=== PATIENT | male | born 1970 | race Caucasian/White ===

== ENCOUNTER 2019-08-25 11:33 | Observation (INO) | payer SELFPAY ==
[2019-08-25 12:30] LABS: #Basophils 0.1 thou/uL (0.0-0.2); #Eosinphils 0.1 thou/uL (0.0-0.7); #Lymphocytes 2.1 thou/uL (1.20-3.40); #Monocytes 0.7 thou/uL (0.11-0.59); #Neutrophils 8.7 thou/uL (1.40-6.50); %Basophils 0.8 % (0.0-1.0); %Eosinophils 0.5 % (0.0-10.0); %Lymphocytes 17.6 % (21.0-51.0); %Monocytes 6.2 % (0.0-10.0); Hemoglobin 15.5 g/dL (14.0-18.0); Mean Corpuscular HGB CONC 33.9 g/dL (32.0-36.0); Mean Corpuscular Hemoglobin 29.5 pg (27.0-31.0); Mean Corpuscular Volume 86.9 fL (78.0-98.0); Mean Platelet Volume 6.2 fL (7.4-10.4); Platelet Count 304 thou/uL (130-400); RBC Distribution Width 14.1 % (11.5-14.5); Red Blood Cell (RBC) Count 5.24 mill/uL (4.70-6.10); White Blood Cell (WBC) Count 11.7 thou/uL (4.8-10.8)
[2019-08-25 13:00] LABS: ALT (SGPT) 46 U/L (8-55); AST (SGOT) 65 U/L (5-34); Albumin 4.1 g/dL (3.5-5.0); Alkaline Phosphatase 72 U/L (40-110); Anion Gap 16 mmol/L (10-20); BUN (Urea Nitrogen) 14 mg/dL (8.9-20.6); Bilirubin, Total 0.4 mg/dL (0.2-1.2); Calc. Creatinine Clearance 0 mL/min (70-130); Calcium 9.1 mg/dL (7.8-10.44); Carbon Dioxide 23 mmol/L (22-29); Chloride 100 mmol/L (98-107); Estimated GFR-MDRD Greater than 90; Glucose 84 mg/dL (70-105); Lipase 36 U/L (8-78); Potassium 4.1 mmol/L (3.5-5.1); Protein, Total 7.1 g/dL (6.0-8.3); Sodium 135 mmol/L (136-145)
[2019-08-25] MEDS ORDERED: Pantoprazole 40 MG VIAL ONE (14:08)
[2019-08-25] MEDS ORDERED: Ondansetron ODT 4 MG TAB ONE (14:58)
[2019-08-25 15:15] LABS: Acetaminophen Less than 6.0 mcg/mL (10.0-30.0); Alcohol 116 mg/dL (Less than 10); Salicylate Less than 8.0 mg/dL (15.0-30.0)
[2019-08-25] MEDS ORDERED: Lorazepam 2 MG/ML VIAL ONE (16:28)
[2019-08-25 16:45] LABS: Bacteria/HPF None Seen HPF (None Seen); Bilirubin Negative (Negative); Blood, Urine Trace (Negative); Clarity Clear (Clear); Glucose, Urine (Dipstick) Normal (Negative); Leukocyte Negative Leu/uL (Negative); Nitrite Negative (Negative); Protein, Urine (Dipstick) Negative (Neg-Trace); RBC/HPF None Seen HPF (0-3); Squamous Epithelial 0-3 HPF (0-3); Urobilinogen Normal mg/dL (Less than 2); WBC/HPF 0-3 HPF (0-3)
[2019-08-25 16:53] LABS: Amphetamine Not Detected (NotDetected); Barbiturates Screen Not Detected (NotDetected); Benzodiazepine Screen Not Detected (NotDetected); Cocaine Metabolite Screen Not Detected (NotDetected); Medtox Control Line Valid? VALID (VALID); Medtox Reader # READER 4; Methadone Not Detected (NotDetected); Methamphetamine Not Detected (NotDetected); Opiate Screen Not Detected (NotDetected); Oxycodone Screen Not Detected (NotDetected); Phencyclidine (PCP) Not Detected (NotDetected); THC/Cannabinoid Screen Not Detected (NotDetected); Tricyclic Screen Not Detected (NotDetected)
[2019-08-25] MEDS ORDERED: Ondansetron ODT 4 MG TAB PO PRN (18:04)
[2019-08-25] MEDS ORDERED: Ondansetron PF 4 MG/2 ML Vial IVP PRN (18:19)
--- NOTE | 2019-08-25 18:52 | PDOC.HHP ---
Hospitalist HPI - History of Present Illness N/V and shaking History of Present Illness: 49/M with PMH alcohol abuse and drug abuse and HTN who presents for increasing nausea and vomiting and shaking over past 4 days. Last drink this morning at 1030. Reports difficulty drinking the first 2-3 beers each morning, secondary to increasing abdominal pain, nausea, vomiting. Describes abdominal pain as muscular pain, "its not on the inside", thinks it from vomiting and dry heaving. Reports dark black specs in vomit intermittently, and blood on toilet tissue after wiping, denies any blood in his stools, has history of hemorrhoids , reports increased shaking and chills, denies any known fever. Reports insomnia , stating I only sleep for approximately 4 hours per night. At this time the patient denies any headaches, hallucinations, chest pain, sob or dysuria. He states that his symptoms are much improved in the ER. Voluntarily admitted to the [facility],01/2019 and self-discharged early in . Lives in his car, in the [facility] [place] area. Reports social issues including family problems likely leading to relapse. Has been "binging", drinking 2 pints of vodka per day, until over the past 4 days, he decided to wean off the vodka. To accomplish this, he checked into a motel and was drinking beer only, approximately 12-15 beers daily. ED Course: Vital Signs: BP: 158/89, Pulse: 99, Resp: 20, Temp: 98.9 (Oral), Pain: 0, O2 sat : 95 on (on Room Air) ETOH 116 Na+ 135, K+ 4.1, CL 100, CO2 23, BUN 14, Creatinine 0.78, Glucose 84, GAP 16 Lipase 36 AST 65, ALT 46, Alk Phos. 72 TSH 1.74 WBC 11.7, Hgb 15.5, Hct 45.5, Plat 304 UDS unremarkable Given Ativan 1 mg IVP Protonix 40 mg IVP Zofran 4mg ODT Hospitalist ROS - Review of Systems Constitutional: reports: chills Gastrointestinal: reports: nausea, vomiting, abdominal pain, diarrhea Hospitalist History - Past Medical History Cardiac: reports: HTN Gastrointestinal: reports: Hemorrhoids Psych: reports: Anxiety, Addictions (alcohol, marijuana and methamphetamines), Depression, Other (ADHD) Dermatology: reports: Eczema (as a child) - Past Surgical History Past Surgical History: reports: Other Other Surgical History: RLE abscess I&D - Family History Family History: reports: cancer, cardiac disorder, hypertension - Social History Alcohol: reports: Heavy Drugs: reports: marijuana, methamphetamine Living Situation: Alone (lives in car), Homeless Occupation: unemployed Activity level: independent ambulation - Exam General Appearance: NAD Eye: PERRL, anicteric sclera ENT: normocephalic atraumatic Neck: supple, no thyromegaly, no lymphadenopathy Heart: RRR, no murmur, no gallops, no rubs Respiratory: CTAB, no wheezes, no rales, no ronchi Gastrointestinal: soft, non-tender, normal bowel sounds, no guarding, no rigidity, distended Extremities: no cyanosis, no clubbing Skin: no lesions, no rashes Neurological: cranial nerve grossly intact, no focal deficits Psychiatric: normal affect, A&O x 3 Hospitalist Results - Labs Result Diagrams: 08/25/19 12:18 08/25/19 12:18 Lab results: WBC 11.7 thou/uL (4.8-10.8) H 08/25/19 12:18 Hgb 15.5 g/dL (14.0-18.0) 08/25/19 12:18 Hct 45.5 % (42.0-52.0) 08/25/19 12:18 MCV 86.9 fL (78.0-98.0) 08/25/19 12:18 Plt Count 304 thou/uL (130-400) 08/25/19 12:18 Neutrophils % 75.0 % (42.0-75.0) 08/25/19 12:18 Sodium 135 mmol/L (136-145) L 08/25/19 12:18 Potassium 4.1 mmol/L (3.5-5.1) 08/25/19 12:18 Chloride 100 mmol/L (98-107) 08/25/19 12:18 Carbon Dioxide 23 mmol/L (22-29) 08/25/19 12:18 BUN 14 mg/dL (8.9-20.6) 08/25/19 12:18 Creatinine 0.78 mg/dL (0.7-1.3) 08/25/19 12:18 Glucose 84 mg/dL (70-105) 08/25/19 12:18 Calcium 9.1 mg/dL (7.8-10.44) 08/25/19 12:18 Total Bilirubin 0.4 mg/dL (0.2-1.2) 08/25/19 12:18 AST 65 U/L (5-34) H 08/25/19 12:18 ALT 46 U/L (8-55) 08/25/19 12:18 Alkaline Phosphatase 72 U/L (40-110) 08/25/19 12:18 Serum Total Protein 7.1 g/dL (6.0-8.3) 08/25/19 12:18 Albumin 4.1 g/dL (3.5-5.0) 08/25/19 12:18 Lipase 36 U/L (8-78) 08/25/19 12:18 Urine Ketones Trace mg/dL (Negative) A 08/25/19 16:00 Urine Blood Trace (Negative) A 08/25/19 16:00 Urine Nitrite Negative (Negative) 08/25/19 16:00 Ur Leukocyte Esterase Negative Anotnella/uL (Negative) 08/25/19 16:00 Urine RBC None Seen HPF (0-3) 08/25/19 16:00 Urine WBC 0-3 HPF (0-3) 08/25/19 16:00 Ur Squamous Epith Cells 0-3 HPF (0-3) 08/25/19 16:00 Urine Bacteria None Seen HPF (None Seen) 08/25/19 16:00 Hospitalist H&P A/P - Problem (1) Alcohol withdrawal syndrome Code(s): F10.239 - ALCOHOL DEPENDENCE WITH WITHDRAWAL, UNSPECIFIED Status: Acute (2) Nausea & vomiting Code(s): R11.2 - NAUSEA WITH VOMITING, UNSPECIFIED Status: Acute (3) Hypertension Code(s): I10 - ESSENTIAL (PRIMARY) HYPERTENSION Status: Chronic (4) Anxiety and depression Code(s): F41.9 - ANXIETY DISORDER, UNSPECIFIED; F32.9 - MAJOR DEPRESSIVE DISORDER, SINGLE EPISODE, UNSPECIFIED Status: Acute - Plan Plan: Patient reports improvement of symptoms in ER, Reports he has contacted his previous alcohol treatment center in [place] and they will except him back into their program. He states that he wants to return to the program. library monitor Obtain Baseline EKG. ASE protocol initiated Banana bag daily Check Mg+ and Ph FOBT pending results. Consult MR when medically stable. Restart home medications when reconciled. GI prophylaxis SCDs Consult walking program. Recheck labs in AM Full Code. Decision maker, ex , Kelsey Camarena, [facility] ([place]) contact, Severino [phone].
[2019-08-25] MEDS ORDERED: Diazepam 5 MG TAB PO PRN (19:14)
[2019-08-25] MEDS ORDERED: Diazepam 5 MG TAB PO SCH (19:30)
[2019-08-25] MEDS ORDERED: Thiamine HCl 200 MG/2 ML VIAL IM SCH (20:00)
[2019-08-25 20:20] LABS: Phosphorus 2.7 mg/dL (2.3-4.7)
[2019-08-25] MEDS ORDERED: Famotidine/PF 20 mg/2ml Vial SLOW IVP SCH (21:00)
[2019-08-25] MEDS: Multivitamins, Adult 10 ML, Folic Acid 1 MG, Thiamine HCl 100 MG in Dextrose 5 %-0.45 %... IV SCH (21:16)
[2019-08-25 21:48] VITALS: BMI 34.0
[2019-08-25] MEDS ORDERED: Metoprolol Tartrate 25 MG TAB PO SCH (22:00)
[2019-08-25] MEDS: Sodium Chloride 0.9% 1,000 ML IV SCH (22:16)
[2019-08-26] MEDS ORDERED: Lorazepam 1 MG TAB PO SCH (00:15)
[2019-08-26] MEDS ORDERED: Diazepam 5 MG TAB PO PRN (04:00)
[2019-08-26 04:56] LABS: #Basophils 0.1 thou/uL (0.0-0.2); #Eosinphils 0.2 thou/uL (0.0-0.7); #Lymphocytes 2.3 thou/uL (1.20-3.40); #Monocytes 0.9 thou/uL (0.11-0.59); #Neutrophils 6.5 thou/uL (1.40-6.50); %Basophils 0.6 % (0.0-1.0); %Eosinophils 2.1 % (0.0-10.0); %Lymphocytes 23.6 % (21.0-51.0); %Monocytes 8.6 % (0.0-10.0); %Neutrophils 65.1 % (42.0-75.0); Hemoglobin 13.5 g/dL (14.0-18.0); Mean Corpuscular HGB CONC 33.2 g/dL (32.0-36.0); Mean Corpuscular Hemoglobin 29.3 pg (27.0-31.0); Mean Corpuscular Volume 88.2 fL (78.0-98.0); Mean Platelet Volume 6.6 fL (7.4-10.4); Platelet Count 258 thou/uL (130-400); RBC Distribution Width 14.1 % (11.5-14.5); Red Blood Cell (RBC) Count 4.61 mill/uL (4.70-6.10); White Blood Cell (WBC) Count 9.9 thou/uL (4.8-10.8)
[2019-08-26 05:22] LABS: Anion Gap 14 mmol/L (10-20); BUN (Urea Nitrogen) 10 mg/dL (8.9-20.6); Calc. Creatinine Clearance 166 mL/min (70-130); Carbon Dioxide 25 mmol/L (22-29); Chloride 105 mmol/L (98-107); Estimated GFR-MDRD Greater than 90; Glucose 100 mg/dL (70-105); Potassium 3.7 mmol/L (3.5-5.1); Sodium 140 mmol/L (136-145)
[2019-08-26] MEDS ORDERED: FLU VACC QS2019-20(6MOS UP)/PF 60 MCG/0.5 ML SYRINGE IM ONE (09:00)
[2019-08-26] MEDS: Magnesium Oxide 400 MG TAB PO SCH (10:10)
[2019-08-26] MEDS: Thiamine 100 MG TAB PO SCH (10:11)
[2019-08-26] MEDS: Folic Acid 1 MG TAB PO SCH (10:11)
[2019-08-26] MEDS: Metoprolol Tartrate 25 MG TAB PO SCH ×2 (10:11→21:21)
[2019-08-26] MEDS: Multivitamin W/ Minerals 1 TAB PO SCH (10:11)
[2019-08-26] MEDS: Pantoprazole 40 MG VIAL IVP SCH ×2 (10:12→21:21)
[2019-08-26] MEDS: Lorazepam 1 MG TAB PO PRN ×2 (10:23→23:49)
[2019-08-26] MEDS: Sodium Chloride 0.9% 1,000 ML IV SCH (11:40)
--- NOTE | 2019-08-26 11:49 | PDOC.HOSPP ---
- Subjective Encounter Date: 08/26/19 Encounter Time: 07:40 Subjective: Pt seen for followup re: GI bleed. States he feels slightly better. No fevers. - Objective Vital Signs & Weight: Vital Signs (12 hours) Temp Pulse Resp BP BP BP Pulse Ox 08/26/19 11:36 98.0 F 83 20 141/96 H 96 08/26/19 10:18 169/94 H 08/26/19 08:00 98.6 F 99 16 169/94 H 169/94 H 96 08/26/19 04:00 97.7 F 89 20 137/78 93 L 08/26/19 00:00 99.1 F 99 18 179/106 H 94 L Weight Weight 230 lb I&O: 08/25/19 08/26/19 08/27/19 06:59 06:59 06:59 Intake Total 1400 Balance 1400 Result Diagrams: 08/26/19 04:31 08/26/19 04:31 Additional Labs: labs and MARs reviewed by ga Hospitalist ROS - Review of Systems Constitutional: denies: fever, chills, sweats, weakness, malaise Respiratory: denies: cough, shortness of breath, SOB with excertion, pleuritic pain, wheezing Cardiovascular: denies: chest pain, palpitations, orthopnea, paroxysmal noc. dyspnea, edema, light headedness Gastrointestinal: reports: hematochezia. denies: nausea, vomiting, abdominal pain, diarrhea, constipation, melena Skin: denies: rash, lesions, annabel, bruising - Medication Medications: Active Medications Generic Name Dose Route Start Last Admin Trade Name Cortney PRN Reason Stop Dose Admin Folic Acid 1 mg 08/26/19 09:00 08/26/19 10:11 Folvite PO 1 mg DAILY LAINEY Administration Multivitamins 10 ml/ Folic 1,011.2 mls @ 70 mls/hr 08/25/19 21:00 08/25/19 21 :16 Acid 1 mg/ Thiamine HCl 100 mg IV 08/28/19 11:27 1,011.2 mls / Dextrose/Sodium Chloride Q24HR LAINEY Administration Sodium Chloride 1,000 mls @ 70 mls/hr 08/25/19 19:15 08/26/19 11:40 Normal Saline 0.9% IV 1,000 mls .[id number] LAINEY Administration Iron/Minerals/Multivitamins 1 tab 08/26/19 09:00 08/26/19 10:11 Theragran M PO 1 tab DAILY LAINEY Administration Lorazepam 2 mg 08/26/19 00:03 08/26/19 10:23 Ativan PO 2 mg Q4H PRN Administration Anxiety/Agitation Magnesium Oxide 400 mg 08/26/19 09:00 08/26/19 10:10 Magnesium Oxide PO 400 mg DAILY LAINEY Administration Metoprolol Tartrate 25 mg 08/26/19 09:00 08/26/19 10:11 Lopressor PO 25 mg BID LAINEY Administration Pantoprazole Sodium 40 mg 08/26/19 09:00 08/26/19 10:12 Protonix IVP 40 mg Q12HR LAINEY Administration Thiamine HCl 100 mg 08/26/19 09:00 08/26/19 10:11 Thiamine PO 100 mg DAILY LAINEY Administration - Exam General - other findings: obese Eye: anicteric sclera ENT: normocephalic atraumatic, moist mucosa Neck: supple, symmetric, no JVD, no thyromegaly Heart: RRR, no rubs, normal peripheral pulses Respiratory: CTAB, no wheezes, no rales, no ronchi Gastrointestinal: soft, non-tender, normal bowel sounds, distended Extremities: no edema Skin: no rashes Neurological - other findings: tremor Musculoskeletal: no muscle wasting Psychiatric: normal affect, normal behavior, A&O x 3 Hosp A/P (1) GI bleed Code(s): K92.2 - GASTROINTESTINAL HEMORRHAGE, UNSPECIFIED Status: Acute (2) Alcohol abuse Code(s): F10.10 - ALCOHOL ABUSE, UNCOMPLICATED Status: Chronic (3) Hypertension Code(s): I10 - ESSENTIAL (PRIMARY) HYPERTENSION Status: Chronic (4) Obesity (BMI 30.0-34.9) Code(s): E66.9 - OBESITY, UNSPECIFIED Status: Chronic - Plan Hemoglobin decreased, GI service consulted. Continue banana bag. Continue ASE protocol. hyponatremia resolved. Start amlodipine.
[2019-08-26] MEDS ORDERED: Amlodipine 5 MG TAB PO SCH (12:00)
--- NOTE | 2019-08-26 15:21 | CON ---
DATE OF CONSULTATION: 08/26/2019 REQUESTING PHYSICIANS: Tino Hamilton MD REASON FOR CONSULTATION: Rectal bleeding. HISTORY OF PRESENT ILLNESS: Landon López is a 49-year-old man with a history significant for ongoing quite heavy alcohol abuse as well as hypertension. He has a prior drug history of marijuana and methamphetamine abuse as well. He was previously in rehab last summer for substance abuse issues. He reports that he has been binge drinking basically every day at least two pints of vodka. Over the past several days, he was trying to wean off the vodka, drinking beer instead, about 12 to 15 beers daily. He started having a lot of nausea and vomiting, particularly in the mornings with repeated emesis episodes and dry heaves. He would have some generalized abdominal pain as well. He actually states he was always able to keep food and liquids down; however, he just had to do a lot of vomiting in the morning prior to eating. He denies any hematemesis. He denies any melena or hematochezia, but he does say that whenever he has a lot of beer, he has loose stools and with the loose stools, he will have a little bit of anal discomfort and some bright red blood usually just on the toilet paper. This bright red blood has been intermittent over the past 6 months or so. He has attributed this to hemorrhoids and has been using creams at home with some benefit. He has never undergone colonoscopy. He has no known family history of GI malignancy, though his father did have prostate cancer. REVIEW OF SYSTEMS: Full review of systems including constitutional, head, eyes, ears, nose, throat, GI, , cardiovascular, respiratory, musculoskeletal, and neurologic systems are negative except as noted in the HPI. PAST MEDICAL HISTORY: Hypertension, alcohol abuse, prior history of drug abuse with marijuana and methamphetamines, depression, and eczema. PAST SURGICAL HISTORY: He had a right lower extremity abscess I and D. FAMILY HISTORY: His father had colon cancer. No gastrointestinal malignancy. SOCIAL HISTORY: Ongoing heavy alcohol abuse. He also has a prior recent history of marijuana and methamphetamine abuse. He lives alone in his car. He is unemployed. OUTPATIENT MEDICATIONS: 1. Metoprolol. 2. Librium. 3. Zantac p.r.n. 4. Thiamine. 5. Multivitamin with minerals. 6. Folic acid. 7. Losartan. INPATIENT MEDICATIONS: 1. Norvasc. 2. Valium. 3. Folic acid. 4. Theragran. 5. Banana bag. 6. Ativan. 7. Metoprolol. 8. Zofran p.r.n. 9. Protonix. 10. Thiamine. ALLERGIES: NO KNOWN DRUG ALLERGIES. PHYSICAL EXAMINATION: VITAL SIGNS: Temperature 98.0, pulse 83, blood pressure 169/94, and 96% oxygen saturation on room air. GENERAL: A 49-year-old man, sitting up in bed comfortably, mildly anxious, but in no acute distress. MENTAL: He is hyperalert, fully oriented, pleasant, and conversational. SKIN: No jaundice. No rashes were palpable. HEENT: Eyes, no scleral icterus. Extraocular movements intact. ENT, mucous membranes moist. No oral lesions. LYMPH: No submandibular or supraclavicular lymphadenopathy. THYROID: Nontender to palpation. HEART: Regular rate and rhythm. LUNGS: Clear to auscultation bilaterally. ABDOMEN: Nondistended. Bowel sounds are present. Soft and nontender to palpation throughout. EXTREMITIES: No peripheral edema. VESSELS: Radial pulses 2+ bilaterally. NEURO: Cranial nerves 2 through 12 intact bilaterally. No focal deficits. RECTAL: The patient has some mild excoriation of the perianal skin. No external hemorrhoids or fissure visualized. On digital exam, there is no significant discomfort. I do perceive some internal hemorrhoidal cushions. I cannot palpate any mass. There is no blood on withdrawal of the glove. LABORATORY STUDIES: Admission hemoglobin was 15.5, down to 13.5 overnight with IV hydration. WBC 9.9 and platelets 258. Sodium 140, potassium 3.7, BUN 10, creatinine 0.81, calcium 8.0, total bilirubin 0.4, alkaline phosphatase 72, AST 65, ALT 46, and lipase 36. TSH 1.74. Urinalysis negative. Plasma alcohol level was elevated to 116. Urine drug screen was negative. ASSESSMENT AND PLAN: 1. Rectal bleeding, intermittent over the past 6 months. 2. Probable internal hemorrhoids. 3. Alcohol abuse, with withdrawal. The patient's pattern of intermittent bleeding over the past several months seems most consistent with rectal outlet source, likely secondary to internal hemorrhoids. At his age of 49, further workup would be warranted and I did recommend we proceed with colonoscopy for further investigation to rule out more proximal lesion. There is nothing particularly urgent about this, but I did offer to get it done during his hospital stay here. The patient politely declines any endoscopic examination. He says he is really not ready for this or too concerned at this point. He would like to be able to get through his withdrawal in any rehab program prior to pursuing this any further. I think this is reasonable, but if there is any worsening anemia, worsening of bleeding, or development of any other abdominal symptoms in the meantime, colonoscopy is certainly the next step. The patient understands all the implications. GI will sign off. We will try to get him back in clinic in the next 1 to 2 months for further discussion. Please call back anytime with questions or concerns. Job ID: [id number]
[2019-08-26] MEDS: Multivitamins, Adult 10 ML, Folic Acid 1 MG, Thiamine HCl 100 MG in Dextrose 5 %-0.45 %... IV SCH (21:33)
[2019-08-27] MEDS: Sodium Chloride 0.9% 1,000 ML IV SCH (00:13)
[2019-08-27] MEDS: Metoprolol Tartrate 25 MG TAB PO SCH (08:52)
[2019-08-27] MEDS: Thiamine 100 MG TAB PO SCH (08:52)
[2019-08-27] MEDS: Folic Acid 1 MG TAB PO SCH (08:53)
[2019-08-27] MEDS: Multivitamin W/ Minerals 1 TAB PO SCH (08:53)
[2019-08-27] MEDS: Pantoprazole 40 MG VIAL IVP SCH (08:53)
[2019-08-27] MEDS: Magnesium Oxide 400 MG TAB PO SCH (08:55)
[2019-08-27] MEDS ORDERED: Amlodipine 5 MG TAB PO SCH (09:00)
[2019-08-27 09:54] LABS: #Basophils 0.1 thou/uL (0.0-0.2); #Eosinphils 0.3 thou/uL (0.0-0.7); #Lymphocytes 1.4 thou/uL (1.20-3.40); #Monocytes 0.7 thou/uL (0.11-0.59); #Neutrophils 5.4 thou/uL (1.40-6.50); %Eosinophils 3.2 % (0.0-10.0); %Lymphocytes 18.1 % (21.0-51.0); %Monocytes 8.9 % (0.0-10.0); %Neutrophils 68.8 % (42.0-75.0); Hemoglobin 13.5 g/dL (14.0-18.0); Mean Corpuscular HGB CONC 33.1 g/dL (32.0-36.0); Mean Corpuscular Hemoglobin 29.5 pg (27.0-31.0); Mean Corpuscular Volume 89.3 fL (78.0-98.0); Mean Platelet Volume 6.2 fL (7.4-10.4); Platelet Count 243 thou/uL (130-400); RBC Distribution Width 14.3 % (11.5-14.5); Red Blood Cell (RBC) Count 4.56 mill/uL (4.70-6.10); White Blood Cell (WBC) Count 7.9 thou/uL (4.8-10.8)
[2019-08-27] MEDS ORDERED: Nicotine 21 MG PATCH TD SCH (10:00)
[2019-08-27 10:06] LABS: Anion Gap 10 mmol/L (10-20); BUN (Urea Nitrogen) 6 mg/dL (8.9-20.6); Calc. Creatinine Clearance 171 mL/min (70-130); Calcium 7.9 mg/dL (7.8-10.44); Carbon Dioxide 25 mmol/L (22-29); Chloride 109 mmol/L (98-107); Estimated GFR-MDRD Greater than 90; Glucose 103 mg/dL (70-105); Potassium 3.8 mmol/L (3.5-5.1); Sodium 140 mmol/L (136-145)
[2019-08-27 16:34] VITALS: BP 145/85; TEMP 99
--- NOTE | 2019-08-28 02:21 | DIS ---
DATE OF ADMISSION: 08/25/2019 DATE OF DISCHARGE: 08/27/2019 PRIMARY CARE PROVIDER: Dr. Iron Jimenez. DISCHARGE DIAGNOSES: 1. Alcohol abuse. 2. Gastrointestinal bleed. 3. Hyponatremia. CONDITION OF PATIENT ON THE DAY OF DISCHARGE: Stable. I assessed Mr. López on the day of discharge. He denies any chest pain or shortness of breath. Vital signs are stable. S1 and S2 are heard, regular. Lungs are clear to auscultation bilaterally. CONSULTATIONS DURING THIS HOSPITALIZATION: Gastroenterology, Dr. Tino Newman. POST-ACUTE CARE FOLLOWUP: With primary care provider in 3 days. DIET: Regular. ACTIVITY: Ad lois. DISCHARGE MEDICATIONS: 1. Folic acid 1 mg daily. 2. Cozaar 50 mg daily. 3. Lopressor 25 mg 2 times a day. 4. Theragran 1 tablet daily. 5. Thiamine 100 mg daily. HOSPITAL COURSE: Mr. López is a pleasant 49-year-old gentleman, who was admitted to [facility] on August 25, 2019 for alcohol withdrawal concern. He also reported specks of blood in his stool. He was managed on ASE protocol. He was seen by Gastroenterology Service. Endoscopic studies were offered, but the patient declined endoscopy. In terms of alcohol withdrawal, he continued to do well. He had expressed suicidal ideation at the time of admission. [facility] was therefore consulted on the day of discharge, and they recommended discharging him home. He will follow up with his alcohol rehab center for further management of alcohol abuse. Many thanks for allowing me to participate in your patient's care. Please feel free to contact me with any questions or concerns. LABORATORY DATA: On the day of discharge, he has white count of 7900, hemoglobin 13.5, platelet count 243,000, sodium 140, potassium 3.8, and creatinine 0.79. DISCHARGE DESTINATION: Home. Job ID: [id number]
--- NOTE | 2019-08-31 10:12 | EKG ---
Test Reason : BASE EKG Blood Pressure : / mmHG Vent. Rate : 111 BPM Atrial Rate : 111 BPM P-R Int : 130 ms QRS Dur : 096 ms QT Int : 338 ms P-R-T Axes : 051 052 062 degrees QTc Int : 459 ms Sinus tachycardia Septal infarct , age undetermined Abnormal ECG No previous ECGs available Confirmed by ALEXANDER BEAN (2) on 08/31/2019 10:12:10 AM Referred By: EMMANUELLE Confirmed By:ALEXANDER BEAN
== END 2019-08-27 18:05 | disposition home or self-care (01) ==
LOC: ERS 11:33 → INTOOBSV 20:35 → 2NO 20:35
PROVIDERS: ADMIT Internal Medicine; ATTEND Internal Medicine
DX: F10.239 Alcohol dependence with withdrawal, unspecified (principal); F12.10 Cannabis abuse, uncomplicated; F15.10 Other stimulant abuse, uncomplicated; K92.2 Gastrointestinal hemorrhage, unspecified; E87.1 Hypo-osmolality and hyponatremia; I10 Essential (primary) hypertension; F41.9 Anxiety disorder, unspecified; F32.9 Major depressive disorder, single episode, unspecified; F90.9 Attention-deficit hyperactivity disorder, unspecified type; R45.851 Suicidal ideations
CPT/HCPCS: 36415; 80048; 80053; 80306; 80307; 81003; 81015; 82274; 83690; 83735; 84100; 84443; 85025; 86850; 86900; 86901; 93005; 93010; 96361; 96372; 96374; 96375; 96376; C9113; G0378; J2060; J3411; J3475; J3490; J7042; Q0162; S0028

== ENCOUNTER 2023-08-05 09:30 | Inpatient (IN) | payer SELFPAY ==
[2023-08-05 10:04] LABS: #Monocytes 0.6 thou/uL (0.11-0.59); #Neutrophils 5.2 thou/uL (1.40-6.50); %Basophils 0.6 % (0.0-1.0); %Eosinophils 0.6 % (0.0-10.0); %Lymphocytes 12.8 % (21.0-51.0); %Monocytes 8.1 % (0.0-10.0); %Neutrophils 75.9 % (42.0-75.0); Hematocrit 41.3 % (42.0-52.0); Hemoglobin 14.7 g/dL (14.0-18.0); Mean Corpuscular HGB CONC 35.6 g/dL (32.0-36.0); Mean Corpuscular Hemoglobin 31.2 pg (27.0-31.0); Mean Corpuscular Volume 87.7 fl (78.0-98.0); Mean Platelet Volume 9.3 fL (7.4-10.4); Platelet Count 188 10x3/uL (130-400); RBC Distribution Width 17.7 % (11.5-14.5); Red Blood Cell (RBC) Count 4.71 mill/uL (4.70-6.10); White Blood Cell (WBC) Count 6.9 10x3/uL (4.8-10.8)
[2023-08-05 10:26] LABS: ALT (SGPT) 266 U/L (8-55); AST (SGOT) 379 U/L (5-34); Albumin 3.5 g/dL (3.5-5.0); Alkaline Phosphatase 163 U/L (40-110); Anion Gap 21 mmol/L (10-20); BUN (Urea Nitrogen) 4 mg/dL (8.4-25.7); Calc. Creatinine Clearance 0 mL/min (70-130); Calcium 9.3 mg/dL (7.8-10.44); Carbon Dioxide 24 mmol/L (22-29); Chloride 89 mmol/L (98-107); Estimated GFR 97; Globulin 2.9 g/dL (2.4-3.5); Glucose 154 mg/dL (70-105); Potassium 3.1 mmol/L (3.5-5.1); Protein, Total 6.4 g/dL (6.0-8.3); Sodium 131 mmol/L (136-145)
[2023-08-05] MEDS ORDERED: Thiamine HCl 200 MG/2 ML VIAL ONE (10:26)
[2023-08-05] MEDS ORDERED: Diazepam 10 MG/2 ML SYRINGE ONE ×3 (10:26→13:18)
[2023-08-05 10:27] LABS: Acetaminophen Less than 10 mcg/mL (10.0-30.0); Alcohol Less than 10.0 mg/dL (Less than 10); Lipase 96 U/L (8-78); Magnesium 1.3 mg/dL (1.6-2.6); Salicylate Less than 8.0 mg/dL (15.0-30.0)
[2023-08-05] MEDS ORDERED: Potassium Chloride 20 MEQ TAB ONE ×2 (11:46→12:03)
[2023-08-05] MEDS ORDERED: Magnesium 2 GM/50 ML BAG (IN WATER) ONE (11:47)
[2023-08-05] MEDS ORDERED: Lorazepam 2 MG/ML VIAL IM PRN (11:51)
[2023-08-05] MEDS ORDERED: Ondansetron PF 4 MG/2 ML Vial IVP PRN (11:51)
[2023-08-05] MEDS ORDERED: Ondansetron ODT 4 MG TAB PO PRN (11:51)
[2023-08-05] MEDS ORDERED: Lorazepam 1 MG TAB PO PRN (11:51)
[2023-08-05] MEDS ORDERED: Acetaminophen 325 MG TAB PO PRN (11:51)
[2023-08-05] MEDS ORDERED: Electrolyte Replacement Protocol 1 EACH FS SCH (12:00)
[2023-08-05] MEDS ORDERED: Enoxaparin 40 MG (0.4 mL) SYRINGE SC SCH (12:00)
[2023-08-05] MEDS: Lorazepam 1 MG TAB PO SCH ×3 (12:34→23:51)
[2023-08-05 15:32] LABS: Syphilis Antibody Nonreactive (Nonreactive); Syphilis Antibody Index 0.07 S/CO (<1.00 Non-Reactive)
[2023-08-05 16:32] VITALS: BMI 38.4
[2023-08-05] MEDS: Thiamine HCl 200 MG/2 ML VIAL SLOW IVP SCH (16:32)
[2023-08-05 16:59] LABS: Amphetamine Not Detected (NotDetected); Barbiturates Screen Not Detected (NotDetected); Benzodiazepine Screen Not Detected (NotDetected); Cocaine Metabolite Screen Not Detected (NotDetected); Methadone Not Detected (NotDetected); Methamphetamine Not Detected (NotDetected); Opiate Screen Not Detected (NotDetected); Oxycodone Screen Not Detected (NotDetected); Phencyclidine (PCP) Not Detected (NotDetected); THC/Cannabinoid Screen Detected (NotDetected); Tricyclic Screen Not Detected (NotDetected)
[2023-08-05] MEDS ORDERED: Lorazepam 1 MG TAB ONE ×2 (17:37→20:01)
[2023-08-05] MEDS: Sodium Chloride 0.9% 1,000 ML IV SCH (17:40)
[2023-08-05] MEDS ORDERED: Folic Acid 1 MG TAB ONE (20:01)
[2023-08-05] MEDS ORDERED: Metoprolol Tartrate 25 MG TAB ONE (20:01)
[2023-08-05] MEDS ORDERED: Multivit, Therapeutic 1 TAB ONE (20:01)
[2023-08-05] MEDS ORDERED: Famotidine 20 MG TAB ONE (20:02)
[2023-08-05] MEDS: Famotidine 20 MG TAB PO SCH (20:23)
[2023-08-05] MEDS: Folic Acid 1 MG TAB PO SCH (20:24)
[2023-08-05] MEDS: Metoprolol Tartrate 25 MG TAB PO SCH (20:24)
[2023-08-05] MEDS: Multivit, Therapeutic 1 TAB PO SCH (20:24)
[2023-08-05 22:16] LABS: Magnesium 1.6 mg/dL (1.6-2.6); Potassium 3.1 mmol/L (3.5-5.1)
[2023-08-06] MEDS: Sodium Chloride 0.9% 1,000 ML IV SCH ×2 (03:00→09:00)
[2023-08-06 04:27] LABS: #Basophils 0.1 thou/uL (0.0-0.2); #Eosinphils 0.2 thou/uL (0.0-0.7); #Monocytes 0.6 thou/uL (0.11-0.59); #Neutrophils 3.9 thou/uL (1.40-6.50); %Eosinophils 2.5 % (0.0-10.0); %Lymphocytes 20.6 % (21.0-51.0); %Monocytes 9.2 % (0.0-10.0); %Neutrophils 64.5 % (42.0-75.0); Hematocrit 36.6 % (42.0-52.0); Hemoglobin 12.7 g/dL (14.0-18.0); Mean Corpuscular HGB CONC 34.7 g/dL (32.0-36.0); Mean Corpuscular Hemoglobin 30.9 pg (27.0-31.0); Mean Corpuscular Volume 89.1 fl (78.0-98.0); Mean Platelet Volume 9.3 fL (7.4-10.4); Platelet Count 170 10x3/uL (130-400); RBC Distribution Width 18.1 % (11.5-14.5); Red Blood Cell (RBC) Count 4.11 mill/uL (4.70-6.10)
[2023-08-06 05:02] LABS: ALT (SGPT) 197 U/L (8-55); AST (SGOT) 208 U/L (5-34); Albumin 2.9 g/dL (3.5-5.0); Alkaline Phosphatase 127 U/L (40-110); Anion Gap 16 mmol/L (10-20); BUN (Urea Nitrogen) Less than 4 mg/dL (8.4-25.7); Bilirubin, Total 1.8 mg/dL (0.2-1.2); Calc. Creatinine Clearance 178 mL/min (70-130); Carbon Dioxide 24 mmol/L (22-29); Chloride 97 mmol/L (98-107); Estimated GFR 106; Globulin 2.3 g/dL (2.4-3.5); Glucose 124 mg/dL (70-105); Protein, Total 5.2 g/dL (6.0-8.3); Sodium 134 mmol/L (136-145)
[2023-08-06 05:11] LABS: Potassium 2.6 mmol/L (3.5-5.1)
[2023-08-06] MEDS: Benzocaine/Menthol 1 LOZ LOZ PO PRN (05:28)
[2023-08-06] MEDS: Potassium Chloride 20 MEQ TAB PO SCH ×2 (05:29→10:08)
[2023-08-06] MEDS: Nicotine 21 MG PATCH TOP PRN (05:29)
[2023-08-06] MEDS: Lorazepam 1 MG TAB PO SCH ×4 (05:29→23:02)
[2023-08-06 06:04] LABS: Amphetamine Not Detected (NotDetected); Barbiturates Screen Not Detected (NotDetected); Benzodiazepine Screen Detected (NotDetected); Cocaine Metabolite Screen Not Detected (NotDetected); Methadone Not Detected (NotDetected); Methamphetamine Not Detected (NotDetected); Opiate Screen Not Detected (NotDetected); Oxycodone Screen Not Detected (NotDetected); Phencyclidine (PCP) Not Detected (NotDetected); THC/Cannabinoid Screen Detected (NotDetected); Tricyclic Screen Not Detected (NotDetected)
[2023-08-06] MEDS ORDERED: Magnesium 2 GM/50 ML(in water) 2 GM in Premix 1 BAG IVPB SCH (08:00)
[2023-08-06] MEDS: Metoprolol Tartrate 25 MG TAB PO SCH ×2 (10:07→21:29)
[2023-08-06] MEDS: Enoxaparin 40 MG (0.4 mL) SYRINGE SC SCH (10:07)
[2023-08-06] MEDS: Losartan 25 MG TAB PO SCH (10:07)
[2023-08-06] MEDS: Famotidine 20 MG TAB PO SCH ×2 (10:08→21:29)
[2023-08-06] MEDS: Thiamine HCl 200 MG/2 ML VIAL SLOW IVP SCH (11:38)
[2023-08-06] MEDS ORDERED: Lorazepam 1 MG TAB PO PRN (11:51)
[2023-08-06] MEDS: Multivit, Therapeutic 1 TAB PO SCH (21:29)
[2023-08-06] MEDS: Folic Acid 1 MG TAB PO SCH (21:29)
[2023-08-07] MEDS: Lorazepam 1 MG TAB PO SCH (05:07)
[2023-08-07 05:08] LABS: Hematocrit 39.3 % (42.0-52.0); Hemoglobin 13.1 g/dL (14.0-18.0); Manual Diff?? YES; Mean Corpuscular HGB CONC 33.3 g/dL (32.0-36.0); Mean Corpuscular Hemoglobin 30.6 pg (27.0-31.0); Mean Corpuscular Volume 91.8 fl (78.0-98.0); Mean Platelet Volume 9.5 fL (7.4-10.4); Platelet Count 198 10x3/uL (130-400); RBC Distribution Width 19.5 % (11.5-14.5); Red Blood Cell (RBC) Count 4.28 mill/uL (4.70-6.10); White Blood Cell (WBC) Count 7.4 10x3/uL (4.8-10.8)
[2023-08-07 05:19] LABS: Delete Auto Diff?? YES
[2023-08-07 05:42] LABS: Band 1 % (5-11); Eosinophils 4 % (0-10); Lymphocytes 11 % (21-51); Monocytes 10 % (0-10); Neutrophil 74 % (42-75); Nucleated RBC (Manual Ct) 4 % (0)
[2023-08-07 05:43] LABS: Anisocytosis MODERATE=16-30 cells (100X) (0-5/hpf); Polychromasia MODERATE = 3-4 cells (100X) (0-2/hpf)
[2023-08-07 05:44] LABS: Platelet Adequacy Comment Platelets Normal; Stomatocytes SLIGHT = 2-5 cells (100X) (0-1/hpf)
[2023-08-07 05:50] LABS: Anion Gap 14 mmol/L (10-20); BUN (Urea Nitrogen) 5 mg/dL (8.4-25.7); Calc. Creatinine Clearance 108 mL/min (70-130); Carbon Dioxide 23 mmol/L (22-29); Chloride 105 mmol/L (98-107); Estimated GFR 64; Glucose 128 mg/dL (70-105); Potassium 2.8 mmol/L (3.5-5.1); Sodium 139 mmol/L (136-145)
[2023-08-07] MEDS: Nicotine 21 MG PATCH TOP PRN (06:03)
[2023-08-07] MEDS: Metoprolol Tartrate 25 MG TAB PO SCH ×2 (09:28→20:29)
[2023-08-07] MEDS: Losartan 25 MG TAB PO SCH (09:28)
[2023-08-07] MEDS: Famotidine 20 MG TAB PO SCH ×2 (09:28→20:29)
[2023-08-07] MEDS: Potassium Chloride 20 MEQ TAB PO SCH ×2 (09:28→11:57)
[2023-08-07] MEDS: Enoxaparin 40 MG (0.4 mL) SYRINGE SC SCH (09:29)
[2023-08-07] MEDS ORDERED: Lorazepam 1 MG TAB PO PRN (11:51)
[2023-08-07] MEDS: Lorazepam 0.5 MG TAB PO SCH ×3 (11:57→23:44)
[2023-08-07] MEDS: Thiamine HCl 200 MG/2 ML VIAL SLOW IVP SCH (11:57)
[2023-08-07] MEDS: Multivit, Therapeutic 1 TAB PO SCH (20:29)
[2023-08-07] MEDS: Folic Acid 1 MG TAB PO SCH (20:29)
[2023-08-08 01:21] LABS: Hematocrit 37.7 % (42.0-52.0); Hemoglobin 12.8 g/dL (14.0-18.0); Manual Diff?? YES; Mean Corpuscular Hemoglobin 31.8 pg (27.0-31.0); Mean Corpuscular Volume 93.8 fl (78.0-98.0); Mean Platelet Volume 9.3 fL (7.4-10.4); Platelet Count 202 10x3/uL (130-400); RBC Distribution Width 20.2 % (11.5-14.5); Red Blood Cell (RBC) Count 4.02 mill/uL (4.70-6.10); White Blood Cell (WBC) Count 8.2 10x3/uL (4.8-10.8)
[2023-08-08 01:23] LABS: Delete Auto Diff?? YES
[2023-08-08 01:39] LABS: Band 5 % (5-11); Eosinophils 3 % (0-10); Lymphocytes 18 % (21-51); Monocytes 10 % (0-10); Myelocyte 1 % (0-0); Neutrophil 63 % (42-75); Nucleated RBC (Manual Ct) 3 % (0); Platelet Adequacy Comment Platelets Normal; Polychromasia SLIGHT = 2-3 cells (100X) (0-2/hpf)
[2023-08-08 01:43] LABS: Anion Gap 12 mmol/L (10-20); BUN (Urea Nitrogen) Less than 4 mg/dL (8.4-25.7); Calc. Creatinine Clearance 76 mL/min (70-130); Calcium 9.2 mg/dL (7.8-10.44); Carbon Dioxide 23 mmol/L (22-29); Chloride 106 mmol/L (98-107); Estimated GFR 42; Glucose 136 mg/dL (70-105); Potassium 3.1 mmol/L (3.5-5.1); Sodium 138 mmol/L (136-145)
[2023-08-08 02:12] LABS: Magnesium 1.7 mg/dL (1.6-2.6)
[2023-08-08] MEDS: Lorazepam 0.5 MG TAB PO SCH (05:00)
[2023-08-08] MEDS ORDERED: Potassium Chloride 20 MEQ TAB PO SCH (08:00)
[2023-08-08] MEDS ORDERED: Magnesium 2 GM/50 ML(in water) 2 GM in Premix 1 BAG IVPB SCH (08:00)
[2023-08-08] MEDS: Metoprolol Tartrate 25 MG TAB PO SCH (10:53)
[2023-08-08] MEDS: Thiamine 100 MG TAB PO SCH (10:53)
[2023-08-08] MEDS: Famotidine 20 MG TAB PO SCH ×2 (10:53→20:59)
[2023-08-08] MEDS: Sodium Chloride 0.9% 1,000 ML IV SCH ×2 (10:54→18:44)
[2023-08-08] MEDS: Losartan 25 MG TAB PO SCH (10:54)
[2023-08-08] MEDS: Enoxaparin 40 MG (0.4 mL) SYRINGE SC SCH (12:32)
[2023-08-08] MEDS: Lorazepam 0.5 MG TAB PO PRN ×2 (12:32→18:44)
[2023-08-08] MEDS: Metoprolol Tartrate 50 MG TAB PO SCH (20:59)
[2023-08-08] MEDS: Folic Acid 1 MG TAB PO SCH (21:00)
[2023-08-08] MEDS: Multivit, Therapeutic 1 TAB PO SCH (21:00)
[2023-08-09] MEDS: Benzocaine/Menthol 1 LOZ LOZ PO PRN (03:50)
[2023-08-09] MEDS: Lorazepam 0.5 MG TAB PO PRN ×5 (03:50→23:54)
[2023-08-09] MEDS: Sodium Chloride 0.9% 1,000 ML IV SCH ×2 (03:50→13:37)
[2023-08-09] MEDS ORDERED: Benzocaine/Menthol 1 LOZ LOZ PO PRN (09:38)
[2023-08-09] MEDS ORDERED: Benzocaine/Menthol 1 LOZ LOZ PO SCH (09:45)
[2023-08-09 10:12] LABS: Hematocrit 39.1 % (42.0-52.0); Hemoglobin 12.7 g/dL (14.0-18.0); Manual Diff?? YES; Mean Corpuscular HGB CONC 32.5 g/dL (32.0-36.0); Mean Corpuscular Hemoglobin 30.9 pg (27.0-31.0); Mean Corpuscular Volume 95.1 fl (78.0-98.0); Mean Platelet Volume 9.6 fL (7.4-10.4); Platelet Count 250 10x3/uL (130-400); RBC Distribution Width 21.3 % (11.5-14.5); Red Blood Cell (RBC) Count 4.11 mill/uL (4.70-6.10); White Blood Cell (WBC) Count 7.8 10x3/uL (4.8-10.8)
[2023-08-09 10:32] LABS: Delete Auto Diff?? YES
[2023-08-09] MEDS: Metoprolol Tartrate 50 MG TAB PO SCH ×2 (10:33→21:08)
[2023-08-09] MEDS: Thiamine 100 MG TAB PO SCH (10:33)
[2023-08-09] MEDS: Enoxaparin 40 MG (0.4 mL) SYRINGE SC SCH (10:33)
[2023-08-09] MEDS: Famotidine 20 MG TAB PO SCH ×2 (10:33→21:07)
[2023-08-09 10:37] LABS: Anion Gap 12 mmol/L (10-20); BUN (Urea Nitrogen) 5 mg/dL (8.4-25.7); Calc. Creatinine Clearance 95 mL/min (70-130); Calcium 8.5 mg/dL (7.8-10.44); Carbon Dioxide 24 mmol/L (22-29); Chloride 107 mmol/L (98-107); Estimated GFR 55; Glucose 126 mg/dL (70-105); Potassium 3.2 mmol/L (3.5-5.1); Sodium 140 mmol/L (136-145)
[2023-08-09 11:55] LABS: Band 2 % (5-11); Eosinophils 1 % (0-10); Lymphocytes 19 % (21-51); Metamyelocyte 2 % (0-0); Monocytes 20 % (0-10); Neutrophil 56 % (42-75); Nucleated RBC (Manual Ct) 2 % (0)
[2023-08-09 11:56] LABS: Platelet Adequacy Comment Appears Adequate
[2023-08-09] MEDS: Potassium Chloride 20 MEQ TAB PO SCH ×2 (13:35→17:29)
[2023-08-09] MEDS: Folic Acid 1 MG TAB PO SCH (21:07)
[2023-08-09] MEDS: Multivit, Therapeutic 1 TAB PO SCH (21:07)
[2023-08-09] MEDS: Nicotine 21 MG PATCH TOP PRN (21:08)
[2023-08-10] MEDS: Sodium Chloride 0.9% 1,000 ML IV SCH
[2023-08-10 04:33] LABS: Hematocrit 37.3 % (42.0-52.0); Hemoglobin 12.2 g/dL (14.0-18.0); Manual Diff?? YES; Mean Corpuscular HGB CONC 32.7 g/dL (32.0-36.0); Mean Corpuscular Hemoglobin 31.5 pg (27.0-31.0); Mean Corpuscular Volume 96.4 fl (78.0-98.0); Mean Platelet Volume 9.7 fL (7.4-10.4); Platelet Count 264 10x3/uL (130-400); RBC Distribution Width 21.2 % (11.5-14.5); Red Blood Cell (RBC) Count 3.87 mill/uL (4.70-6.10); White Blood Cell (WBC) Count 8.1 10x3/uL (4.8-10.8)
[2023-08-10 04:45] LABS: Delete Auto Diff?? YES
[2023-08-10 05:02] LABS: Anion Gap 11 mmol/L (10-20); BUN (Urea Nitrogen) 4 mg/dL (8.4-25.7); Calc. Creatinine Clearance 121 mL/min (70-130); Calcium 8.8 mg/dL (7.8-10.44); Carbon Dioxide 23 mmol/L (22-29); Chloride 110 mmol/L (98-107); Estimated GFR 73; Glucose 104 mg/dL (70-105); Potassium 3.3 mmol/L (3.5-5.1); Sodium 141 mmol/L (136-145)
[2023-08-10 05:19] LABS: Band 4 % (5-11); Eosinophils 1 % (0-10); Lymphocytes 30 % (21-51); Monocytes 17 % (0-10); Myelocyte 1 % (0-0); Neutrophil 46 % (42-75); Nucleated RBC (Manual Ct) 3 % (0); Reactive Lymphocytes 1 % (0-10); Stomatocytes SLIGHT = 2-5 cells (100X) (0-1/hpf)
[2023-08-10 05:20] LABS: Platelet Adequacy Comment Appears Adequate
[2023-08-10] MEDS: Lorazepam 0.5 MG TAB PO PRN (05:29)
[2023-08-10] MEDS ORDERED: Potassium Chloride 20 MEQ TAB PO SCH (08:00)
[2023-08-10] MEDS: Enoxaparin 40 MG (0.4 mL) SYRINGE SC SCH (09:04)
[2023-08-10] MEDS: Famotidine 20 MG TAB PO SCH (09:05)
[2023-08-10] MEDS: Thiamine 100 MG TAB PO SCH (09:05)
[2023-08-10] MEDS: Metoprolol Tartrate 50 MG TAB PO SCH (09:05)
[2023-08-10 12:08] VITALS: BP 180/103; TEMP 98
== END 2023-08-10 15:01 | disposition home or self-care (01) | DRG 897 ==
LOC: ERS 09:30 → ERHOLD 11:57 → 2NO 23:05
PROVIDERS: ADMIT Hospitalist; ATTEND Internal Medicine
DX: F10.239 Alcohol dependence with withdrawal, unspecified (principal); N17.9 Acute kidney failure, unspecified; E87.6 Hypokalemia; E83.42 Hypomagnesemia; R74.01 Elevation of levels of liver transaminase levels; I10 Essential (primary) hypertension; F32.A Depression, unspecified; Z98.890 Other specified postprocedural states; Z79.899 Other long term (current) drug therapy; F41.9 Anxiety disorder, unspecified; F12.10 Cannabis abuse, uncomplicated
CPT/HCPCS: 36415; 70450; 80048; 80053; 80306; 80307; 83690; 83735; 85025; 86780; 93005; 94760; 96365; 96375; 96376; J1650; J3360; J3411; J3475; J7050